=== PATIENT | male | born 1955 | race Two or more races ===

== ENCOUNTER 2022-11-30 17:06 | Inpatient (IN) | payer OTHER ==
[~2022-11-30] VITALS: Ht 190.5 cm; Wt 66.5 kg
[2022-11-30] MEDS: LORazepam 2MG/ML-1ML VIAL ONE ×2 (17:57→18:36)
[2022-11-30] MEDS: LORazepam 2MG/ML-1ML VIAL IV ONE (18:00)
[2022-11-30 20:13] LABS: Basophils # (auto) 0 10 ^3/uL (0-0.2); Basophils % (auto) 0.5 % (0.0-2.0); Eosinophils # (auto) 0 10 ^3/uL (0-0.8); Eosinophils % (auto) 0.4 % (0.0-7.0); Hematocrit 36.8 % (41.0-53.0); Hemoglobin 12.3 g/dL (13.5-17.5); Lymphocytes # (auto) 1.5 10 ^3/uL (0.4-5.4); Lymphocytes % (auto) 22.7 % (10.0-50.0); Mean Corpuscular Hemoglobin 30.1 pg (28.0-32.0); Mean Corpuscular Hgb Conc. 33.3 g/dL (32.0-36.0); Mean Corpuscular Volume 90.5 fL (80.0-100.0); Monocytes # (auto) 0.6 10 ^3/uL (0-1.3); Monocytes % (auto) 9.2 % (0.0-12.0); Neutrophils # (auto) 4.5 10 ^3/uL (1.6-8.6); Neutrophils % (auto) 67.2 % (37.0-80.0); Nucleated Red Blood Cells % 0.1 %; Red Blood Cells 4.07 10^6/uL (4.5-5.90); Red Cell Distribution Width 14.2 % (11.8-14.3); White Blood Cell 6.7 10^3/uL (4.4-10.8)
[2022-11-30] MEDS ORDERED: LORazepam 2MG/ML-1ML VIAL IV ONE (20:15)
[2022-11-30 20:29] LABS: Albumin 3.6 g/dL (3.4-5.0); Anion Gap 7 (5-15); Blood Alcohol < 3.0 mg/dL (<10); Blood Urea Nitrogen 9 mg/dL (7-18); Calcium 8.4 mg/dL (8.5-10.1); Carbon Dioxide 26 mmol/L (21-32); Chloride 102 mmol/L (98-107); Glucose 109 mg/dL (74-106); Magnesium 2.3 mg/dL (1.6-2.6); Potassium 4.2 mmol/L (3.5-5.1); Sodium 135 mmol/L (136-145)
[2022-11-30 20:32] LABS: Alanine Aminotransferase 22 U/L (16-61); Alkaline Phosphatase 47 U/L (45-117); Aspartate Aminotransferase 19 U/L (15-37); Bilirubin, Total 0.4 mg/dL (0.2-1.0); GFR African American 120 mL/min; GFR Non-African American 99 mL/min; Total Protein 6.2 g/dL (6.4-8.2)
[2022-11-30 20:38] LABS: INR 1.07 (0.9-1.15); Partial Thromboplastin Time 31.6 SEC (24.5-34.5)
[2022-11-30] MEDS ORDERED: MORPHINE SULFATE INJ 2 MG/ml SYRG IV PRN (20:45)
[2022-11-30] MEDS ORDERED: NITROGLYCERIN 0.4 MG SL TAB SL PRN (20:45)
[2022-11-30] MEDS ORDERED: LORazepam 2MG/ML-1ML VIAL IV PRN (20:45)
[2022-11-30] MEDS ORDERED: ACETAMINOPHEN 325 MG TAB PO PRN (20:45)
[2022-11-30] MEDS ORDERED: ONDANSETRON HCL 4 MG/2 ML VIAL IV PRN (20:45)
[2022-12-01 00:12] VITALS: BP 169/67
[2022-12-01] MEDS ORDERED: hydrALAZINE HCL 20 MG/ML VL IV PRN (01:15)
[2022-12-01 05:00] VITALS: BP 118/66
[2022-12-01 06:43] LABS: Basophils # (auto) 0.1 10 ^3/uL (0-0.2); Basophils % (auto) 0.5 % (0.0-2.0); Eosinophils # (auto) 0 10 ^3/uL (0-0.8); Eosinophils % (auto) 0.3 % (0.0-7.0); Hematocrit 38.2 % (41.0-53.0); Lymphocytes # (auto) 1.5 10 ^3/uL (0.4-5.4); Lymphocytes % (auto) 12.6 % (10.0-50.0); Mean Corpuscular Hemoglobin 30.3 pg (28.0-32.0); Mean Corpuscular Volume 89.1 fL (80.0-100.0); Monocytes # (auto) 1.2 10 ^3/uL (0-1.3); Monocytes % (auto) 10.1 % (0.0-12.0); Neutrophils # (auto) 8.9 10 ^3/uL (1.6-8.6); Neutrophils % (auto) 76.5 % (37.0-80.0); Red Blood Cells 4.29 10^6/uL (4.5-5.90); Red Cell Distribution Width 14.4 % (11.8-14.3); White Blood Cell 11.6 10^3/uL (4.4-10.8)
[2022-12-01 07:14] LABS: Potassium 3.8 mmol/L (3.5-5.1)
[2022-12-01 07:21] LABS: Albumin 3.4 g/dL (3.4-5.0); BUN/Creatinine Ratio 10.6 (10.0-20.0); Bilirubin, Total 0.5 mg/dL (0.2-1.0); Calcium 8.5 mg/dL (8.5-10.1); Total Protein 6.2 g/dL (6.4-8.2)
[2022-12-01 09:00] VITALS: BP 113/62
[2022-12-01] MEDS: PANTOPRAZOLE 40 MG TAB PO SCH (10:05)
[2022-12-01] MEDS ORDERED: DIVA1TAB39 PO (10:13)
[2022-12-01] MEDS ORDERED: LAMO100T44 PO (10:13)
[2022-12-01 13:00] VITALS: BP 126/71
[2022-12-01] MEDS ORDERED: lamoTRIgine 100 MG TAB PO ONE (13:00)
[2022-12-01 17:00] VITALS: BP 129/70
[2022-12-01] MEDS: lamoTRIgine 100 MG TAB PO SCH (21:30)
[2022-12-01 22:00] VITALS: BP 121/65
[2022-12-02 05:00] VITALS: BP 125/72
[2022-12-02 07:31] LABS: Urine Bacteria FEW /hpf (None Seen); Urine Blood Negative /uL (Negative); Urine Specific Gravity 1.006 (1.001-1.035); Urine WBC <1 /hpf (0 - 3)
[2022-12-02 07:36] LABS: Alcohol, Urine < 3.0 mg/dL (0-10); Amphetamine Screen, Urine NEGATIVE (NEGATIVE); Barbiturate Scree,Urine NEGATIVE (NEGATIVE); Benzodiazephine Screen, Urine NEGATIVE (NEGATIVE); Cannabinoid Screen, Urine NEGATIVE (NEGATIVE); Cocaine Screen, Urine NEGATIVE (NEGATIVE); Opiate Scree,Urine NEGATIVE (NEGATIVE); Phencyclidine Screen, Urine NEGATIVE (NEGATIVE)
[2022-12-02 08:00] VITALS: BP 108/73
[2022-12-02 08:41] VITALS: BP 108/73
[2022-12-02] MEDS: PANTOPRAZOLE 40 MG TAB PO SCH (09:50)
[2022-12-02] MEDS: lamoTRIgine 100 MG TAB PO SCH ×2 (09:50→22:52)
[2022-12-02 12:00] VITALS: BP 116/68
[2022-12-02 16:00] VITALS: BP 123/63
[2022-12-03 04:57] VITALS: BP 130/67
[2022-12-03 09:00] VITALS: BP 122/70
[2022-12-03] MEDS: lamoTRIgine 100 MG TAB PO SCH ×2 (11:15→22:29)
[2022-12-03] MEDS: PANTOPRAZOLE 40 MG TAB PO SCH (11:15)
[2022-12-03 13:00] VITALS: BP 132/73
[2022-12-03 17:00] VITALS: BP 139/79
[2022-12-03 22:00] VITALS: BP 135/70
[2022-12-04 04:47] VITALS: BP 143/71
[2022-12-04 09:00] VITALS: BP 119/73
[2022-12-04] MEDS: lamoTRIgine 100 MG TAB PO SCH (10:57)
[2022-12-04 13:00] VITALS: BP 124/71
[2022-12-04 16:45] VITALS: BP 132/73
[2022-12-04 16:57] VITALS: BP 132/73
== END 2022-12-04 17:10 | disposition home or self-care (01) | DRG 101 ==
LOC: ER 17:06 → EDBD 17:06 → UNDOADMIN 20:49 → TELE 20:49 → TELE-WESTW 20:49
PROVIDERS: ADMIT Nurse Practitioner; ATTEND Internal Medicine
DX: G40.909 Epilepsy, unspecified, not intractable, without status epilepticus (principal); D64.9 Anemia, unspecified; S00.81XA Abrasion of other part of head, initial encounter; W18.39XA Other fall on same level, initial encounter; S50.811A Abrasion of right forearm, initial encounter; S06.0X0A Concussion without loss of consciousness, initial encounter; Y93.89 Activity, other specified; Y92.89 Other specified places as the place of occurrence of the external cause; Y99.8 Other external cause status; Z87.820 Personal history of traumatic brain injury; Z91.148 Patient's other noncompliance with medication regimen for other reason
CPT/HCPCS: 36415; 70450; 71045; 80053; 80164; 80307; 80320; 81001; 83605; 83735; 83880; 85025; 85379; 85610; 85730; 87040; 93005; G0378; J7060